=== PATIENT | female | born 1935 | race Caucasian/White ===

== ENCOUNTER 2023-05-21 10:00 | Emergency (ER) | payer MEDICARE, OTHER, SELFPAY ==
[2023-05-21 10:07] VITALS: BP 147/98
--- NOTE | 2023-05-21 12:40 | ED.GENMED ---
History of Present Illness
General
Chief Complaint: DVT/Possible Blood Clot
Source: patient
Exam Limitations: none
Time Seen by Provider: 05/21/23 10:30
Nursing documentation reviewed up to this point in time: agreed with
Travel History
Have you had any contact with someone who has COVID-19?: No
Do you have any symptoms of coronavirus? Fever > 100 degrees, chills, cough, shortness of breath, sore throat, loss of taste or smell, muscle aches, or headache?: No
History of Present Illness
History of Present Illness:
pt is a 87 y/o F with h/o hypothyroid
here with right leg pain x 4 days
she seems to think it started in he rright foot/ankle region. she noticed that the socks she normally wears seemed tight and her foot was 'killing her.' she hasn't worn the socks since but has had pain that radiates up from her foot all the way to
her hip
she doesn't believe the pain is radiating down from her back or hip
but she actually cannot exactly describes where she has the pain
she first said in her foot, then behind her knee, then the whole leg
she had remote lumbar fusion surgery ([facility], 2018) and b/l knee replacements [facility] 30 years ago
she has not noticed any swelling
she went to urgent care today and was sent here to R/O dvt.
pt has been taking advil 400 mg twice a day which helps slightly but she still gets the pain
walking seems to be worse than lying but when she changes position in the bed she will get a pain in her leg
it is not only with walking, it occurs at rest as well
no color change, foot drop, incontinence, fever, chills, redness, warmth
she noticed a bump on the top of her foot as well which is painful
last dose advil yesterday
pt used her husbands walker today which helped.
Past History
Past History
ED Past Medical History: Hypothyroidism
Social History
Tobacco: Non-smoker
Alcohol: None
Drug: None
Personal:
Review of Systems
Review of Systems
Allergies reviewed?: Yes
All Other Systems: Not applicable
Phy Exam
Physical Exam
Physical Exam:
GENERAL: Alert , in no apparent distress, comfortable at rest
HEAD: NCAT
NECK: no midline tenderness, active ROM intact, no paraspinal muscle tenderness;
CARDIAC: Regular rate and rhythm, no edema
LUNGS: Clear breath sounds bilaterally, no acute respiratory distress, no wheezes/rales/rhonchi
ABDOMEN: Soft, without focal tenderness, no r/g, no cvat, normal bowel sounds, nondistended
NEUROLOGICAL: Alert and oriented, no focal neuro deficits, CN intact, 5/5 strength, sensation intact, ambulation slight limp left leg
SKIN: Warm and dry,
MUSCULOSKELETAL: No edema, well perfused. Normal inspection of the left hip, left leg
Patient has no tenderness to palpation of the hip, minimal tenderness in the SI joint
He has no pain with flexion of the left hip, external rotation, but with internal rotation has discomfort
Back: No midline tenderness, mild dextroscoliosis, slight left paraspinal muscle tenderness on exam, no swelling
negative straight leg raise Bilaterally
PSYCH: Normal and appropriate interaction.
Course
Orders/Labs/Results
Orders:
Orders
05/21/23 10:40
Legs, Right US [US Periph Venous LOWER Ext RT] Urgent
Comment:
Reason For Exam: pain, swelling
05/21/23 12:22
Foot, Right 3 View [CR Foot - Right Min 3 Views] Urgent
Comment:
Reason For Exam: right dorsal foot pain/lump
Hip, Right 2-3 Views [CR Hip - RT w/wo Pel 2-3 Vw*] Urgent
Comment:
Reason For Exam: right hip pain
Include a pelvis x-ray?: Yes
Lumbar Spine Complete, 4 View [CR Lumbar Spine Comp Min 4 Vw*] Urgent
Comment:
Reason For Exam: lower back pain
05/21/23 12:24
Knee, Right 4 or More Views [CR Knee- Right 4 Or More View*] Urgent
Comment:
Reason For Exam: right knee pain
05/21/23 12:39
Acetaminophen [Tylenol] 650 mg PO NOW STA
Ibuprofen [Motrin] 400 mg PO NOW STA
Vital Signs
Initial and Last Documented VS:
Initial Vital Signs
Temp Pulse Resp BP Pulse Ox
98.9 F 90 22 147/98 97
05/21/23 10:07 05/21/23 10:07 05/21/23 10:07 05/21/23 10:07 05/21/23 10:07
Last Documented Vital Signs
Temp Pulse Resp BP Pulse Ox
98.9 F 71 22 176/78 97
05/21/23 10:07 05/21/23 14:19 05/21/23 10:07 05/21/23 14:19 05/21/23 14:19
MDM/Problems Addressed
Differential Diagnosis Includes:
sciatica, neuorpathy, dvt,
MDM/Problems Addressed:
87 y/o F fairly healthy
here with pian from her foot/ankle that seems to radiate up her leg
worsening the past 2 days
started with feeling pain on top of her foot and feelin a lump there
but then flet pain all throughout the leg
she does have more pain with walking
she has been using a walker and normally doesn't need to, advil yesterday didn't really help
no significant swelling, sent from [facility] to r/o DVT
pt does seem to have pain from her SI joint when i examine her and have her walk, she then describes having mroe pain in her hip anbd back than her leg
she has normal perfusion, normal temp, full rom, no swelling, no skin changes, no fever, no red flag symptoms
she is able to walk
she was given tylenol and motrin and didn't feel much bdifference
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
she may have ganglion cyst on dorsum of her foot which i do not feel is very relevent to her having mroe pain in her hip/leg
offered her a few stronger med
pt would like to try vicodin before bedimte
and otherwise stick to motrin during the day
adae brad make sure she is cared for
*Critical Care Note
Total Time (30-74mins, 75-104mins- exclusive of procedures): Not Applicable
ED Attending Note
-
Portions of this chart may have been created with voice recognition software.� Occasional wrong word or��sound alike� substitutions may have occurred due to the inherent limitations of voice recognition software.
Discharge Plan
Departure
Patient Disposition: Home (Routine Discharge)
Date of Disposition: 05/21/23
Time of Disposition: 14:18
Patient with high blood pressure during this ER visit?: Yes
Condition: Fair
Covid-19: Not Applicable
Discharge Problem:
Acute leg pain
Instructions: Muscle and Bone Pain (DC), Ganglion Cyst (DC)
Prescriptions:
New
hydrocodone-acetaminophen 5-325 mg tablet
1 tab PO BID PRN (Reason: Pain) Qty: 10 0RF
No Action
mirtazapine 30 mg Tablet
30 mg PO HS
ibuprofen [Advil] 200 mg Tablet
400 mg PO BIDPRN PRN (Reason: mild pain)
ipratropium bromide 42 mcg (0.06 %) [place],Non-Aerosol
2 spray INTRANASAL TID
fluticasone propionate 50 mcg/actuation [place]yer,Suspension
2 spray INTRANASAL BID
levothyroxine 112 mcg Tablet
112 mcg PO MOTUWETHFRSA@0800
levothyroxine 112 mcg Tablet
224 mcg PO MORSE@0800
Centrum Silver Tablet
1 tab PO DAILY
Glucosamine Chondroitin
1 tab PO DAILYPRN PRN (Reason: supplement)
calcium
1 tab PO DAILY
cholecalciferol (vitamin D3)
1 tab PO DAILY
Referrals:
Morgan Fong, DO [Family Provider] - Follow up in 2-3 days
Activity Restrictions/Additional Instructions:
We are not sure of the cause of your pain. You do have degenerative changes in both your lumbar spine and your hip. 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 The radiologist did review your x-rays and agreed. You do have
what seems like a ganglion cyst on the top of your foot which can cause some discomfort but it should radiate all the way up your leg. The radiation of the pain up your leg could be from your back. Take Advil 400 mg 2 or 3 times a day with food
for the inflammation. If the pain is severe you can take Vicodin or half of Vicodin at night before bed. This may make you sleepy, make sure you do not get up from your bed slowly. Use the walker to help you walk. Watch for worsening symptoms
like weakness, numbness, swelling, color change, cold foot, foot drop, fever or chills and if any of that happens fiend come back immediately. Otherwise follow-up with orthopedics
Interventions
Interventions:
*Risk Screen - Suicide Last Done: 05/21/23 12:38
*General Assessment Last Done: 05/21/23 12:38
*Neglect/Abuse Screening Last Done: 05/21/23 12:38
ED- Fall Risk Assessment Last Done: 05/21/23 14:40
*ED COVID-19 Vaccine History Last Done: 05/21/23 10:15
*Nursing Disposition Last Done: 05/21/23 14:40
ED- Cardiac Assessment Last Done: 05/21/23 12:38
ED- Pulmonary Assessment Last Done: 05/21/23 12:38
ED-Peripheral Vascular Assessment Last Done: 05/21/23 12:41
ED-Skin Assessment Last Done: 05/21/23 12:41
Discharge Date and Time
Discharge Date/Time: 05/21/23 14:45
[2023-05-21] MEDS: TYLENOL 650 MG PO (13:00)
[2023-05-21] MEDS: MOTRIN 400 MG PO (13:00)
[2023-05-21 14:19] VITALS: BP 176/78
== END 2023-05-21 14:45 | disposition home or self-care (01) ==
LOC: EMR 10:00
PROVIDERS: EMERGENCY PHYSICIAN Emergency Medicine; FAMILY PHYSICIAN Family Medicine
DX: M79.661 Pain in right lower leg (principal); M47.896 Other spondylosis, lumbar region; R03.0 Elevated blood-pressure reading, without diagnosis of hypertension; Z96.653 Presence of artificial knee joint, bilateral
CPT/HCPCS: 99284; 72110; 73502; 73564; 73630; 93971